=== PATIENT | male | born 1975 | race American Indian/Alaskan Native ===

== ENCOUNTER → 2020-11-15 12:29 | Outpatient (BNVA) | payer OTHER, SELFPAY | PROVIDERS: Visit Provider Physician Assistant ==

== ENCOUNTER → 2020-11-25 07:13 | Outpatient (BNVA) | payer OTHER, SELFPAY | PROVIDERS: Visit Provider Surgery ==

== ENCOUNTER → 2020-12-02 08:10 | Outpatient (BNVA) | payer OTHER, SELFPAY | PROVIDERS: Visit Provider Surgery ==

== ENCOUNTER → 2021-01-11 08:04 | Outpatient (BNVA) | payer OTHER, SELFPAY | PROVIDERS: PCP Internal Medicine; Visit Provider Surgery ==

== ENCOUNTER → 2021-01-18 08:19 | Outpatient (BNVA) | payer OTHER, SELFPAY | PROVIDERS: PCP Internal Medicine; Visit Provider Dietitian, Registered | DX: E66.01 Morbid (severe) obesity due to excess calories (principal) | CPT/HCPCS: 97802 ==

== ENCOUNTER 2021-01-26 08:28 | Outpatient (REF) | payer OTHER, SELFPAY ==
--- NOTE | ~2021-01-26 | FL_ITS ---
EXAMINATION: XR GI SERIES CLINICAL INFORMATION: Morbid obesity. COMPARISON: None TECHNIQUE: Air-contrast upper GI examination. FINDINGS: There is normal apposition of the vocal cords while saying E. There is normal elevation of the soft palate while saying candy. Patient drank thin and thick barium without difficulty. No nasopharyngeal reflux or tracheal aspiration. No Zenker's diverticulum identified. There is normal esophageal motility without evidence of persistent stricture or mucosal abnormality. No hiatal hernia was seen. No gastroesophageal reflux was elicited during the study. The stomach demonstrates normal distensibility without abnormal mass or ulceration. There was no delay in gastric emptying. The duodenal bulb and sweep appeared unremarkable. FLUOROSCOPY TIME: 2.0 minutes DOSE AREA PRODUCT: 18.525 Gy-cm2 (monroe-centimeter squared) FL/FL upper GI series IMPRESSION: Normal air-contrast upper GI examination.
--- NOTE | ~2021-01-26 | US_ITS ---
EXAMINATION: US COMPLETE ABDOMEN WITH LIVER ELASTOGRAPHY CLINICAL INFORMATION: Bariatric service evaluation; E66.01 COMPARISON: None. TECHNIQUE: Real-time imaging of the abdominal viscera. Noninvasive ultrasound liver fibrosis assessment is performed using [employer] Elast[employer] point quantification shear wave elastography (pSWE) with a C5-2 MHz transducer. Multiple elastography samples are obtained. Case discussed with director of scout work. FINDINGS: PANCREAS: Largely obscured by bowel gas and not imaged. ABDOMINAL AORTA: Upper abdominal aorta are obscured by bowel gas and not imaged. The mid and distal aorta appears normal in caliber. INFERIOR VENA CAVA: Visualized portions are normal. LIVER: The liver is normal in size and smooth in contour. There is increased hepatic parenchymal echogenicity consistent with hepatic steatosis. Small subcapsular cyst adjacent to gallbladder measures 1.3 x 0.9 cm. There is also some fatty sparing adjacent to the gallbladder fossa. No suspicious hepatic parenchymal lesion. The right lobe measures 14.8 cm in length. The left lobe measures 9.1 cm in length. Portal flow is towards the liver (hepatopetal). Shear wave liver elastography median stiffness is 2.24 m/s (reference: normal median stiffness is 1.3 m/s or less). IQR/median stiffness to assess sampling precision is 0.06 (reference: good quality data set is IQR/median stiffness of 0.15 or less). GALLBLADDER: The gallbladder is normal in size and shows no wall thickening or calculus or subserosal edema. There is negative sonographic Cates's sign. No pericholecystic fluid. Initial images show artifact from adjacent bowel overlying the lumen and mimicking gallbladder sludge. Additional attention to the gallbladder including decubitus imaging shows no sludge, stone, or polyp. COMMON BILE DUCT: Normal in caliber measuring 0.4 cm in diameter. RIGHT KIDNEY: Normal. No hydronephrosis. No renal calculi or focal parenchymal lesions. The kidney measures 11.3 cm in maximum dimension. LEFT KIDNEY: Normal. No hydronephrosis. No renal calculi or focal parenchymal lesions. The kidney measures 11.0 cm in maximum dimension. SPLEEN: Normal. The spleen measures 10.4 cm in maximum dimension. FREE FLUID: None. US/US abdomen comp w elastography IMPRESSION: 1. Hepatic steatosis. Elastography measurements are consistent with compensated advanced chronic liver disease. 2. Spleen normal in size. No ascites. Portal flow towards the liver. 3. No cholelithiasis or biliary ductal dilatation. 4. Bowel gas obscures pancreas and proximal abdominal aorta. REFERENCE: Society of Radiologists in Ultrasound Liver Stiffness Thresholds (2020): LIVER STIFFNESS THRESHOLDS: *Liver Stiffness equal or less than 1.3 m/s: High probability of being normal. *Liver Stiffness less than 1.7 m/s: In the absence of other known clinical signs, rules out compensated advanced chronic liver disease. *Liver Stiffness 1.7-2.1 m/s: Suggestive of compensated advanced chronic liver disease but need further test for confirmation. *Liver Stiffness over 2.1 m/s: Rules in compensated advanced chronic liver disease. *Liver Stiffness over 2.4 m/s: Suggestive of clinically significant portal hypertension. QUALITY OF DATA SET: *IQR/Median value equal or less than 0.15 implies a quality data set. *IQR/Median value over 0.15 implies a poor quality data set. SIGNIFICANT CHANGE FROM PRIOR EXAM: Significant change if liver stiffness measurement is 10% or greater from prior exam. OTHER CONSIDERATIONS: The stage of liver fibrosis may be overestimated in the setting of acute hepatitis, liver inflammation, elevated liver function tests, hepatic vascular congestion, obstructive cholestasis, non-fasting state, and infiltrative diseases such as amyloidosis and lymphoma. In some patients with NAFLD, the liver stiffness thresholds for compensated advanced chronic liver disease may be lower. In causes other than viral hepatitis and NAFLD, liver stiffness thresholds are not well established.
--- NOTE | ~2021-01-26 | XR_ITS ---
EXAMINATION: XR CHEST CLINICAL INFORMATION: Obesity COMPARISON: None TECHNIQUE: 2 views of the chest were obtained. FINDINGS: No significant abnormality is noted involving the heart, lungs, mediastinum, bony thorax or soft tissues. XR/XR chest 2V IMPRESSION: Unremarkable examination.
[2021-01-26 10:01] LABS: MANUAL DIFF FLAG NO
--- NOTE | 2021-01-26 10:02 | ECG_ITS ---
Test Reason : morbid obesity Blood Pressure : / mmHG Vent. Rate : 053 BPM Atrial Rate : 053 BPM P-R Int : 136 ms QRS Dur : 068 ms QT Int : 446 ms P-R-T Axes : 033 020 036 degrees QTc Int : 418 ms Sinus bradycardia Otherwise normal ECG No previous ECGs available Referred By: Ortiz Lopez Electronically Signed By:CHA CAMACHO MD
[2021-01-26 10:24] LABS: Basophils Percent Auto 0.5 % (0-2); Eosinophils Absolute Auto 0.2 X10*3/uL (0.0-0.4); Eosinophils Percent Auto 2.3 % (0-4); Hematocrit 44.7 % (42.0-52.0); Hemoglobin 15.1 g/dl (14.0-18.0); Imm Gran Abs Auto 0.01 X10*3/uL (0.00-0.03); Imm Gran Pct Auto 0.2 % (0.0-0.4); Lymphocytes Absolute Auto 1.7 X10*3/uL (1.2-4.9); Mean Corpuscular HGB Conc 33.8 g/dl (31.0-36.0); Mean Corpuscular Hemoglobin 28.8 pg (27.0-33.0); Mean Corpuscular Volume 85.3 fL (80.0-98.0); Mean Platelet Volume 9.9 fL (9.4-12.4); Monocytes Absolute Auto 0.6 X10*3/uL (0.1-1.2); Monocytes Percent Auto 8.6 % (2-11); Neutrophils Absolute Auto 4.2 x10*3/uL (2.0-8.3); Neutrophils Percent Auto 63.4 % (45-73); Platelet Count 284 X10*3/uL (160-400); Red Blood Count 5.24 X10*6/uL (4.60-5.80); White Blood Count 6.6 X10*3/uL (4.8-10.8)
[2021-01-26 10:50] LABS: Alanine Aminotransferase 58 U/L (0-40); Albumin Level 4.4 g/dL (3.5-5.0); Alkaline Phosphatase 75 U/L (39-117); Anion Gap 12 (12-20); Aspartate Amino Transferase 44 U/L (5-37); Bilirubin Total 0.8 mg/dL (0.0-1.0); Blood Urea Nitrogen 14 mg/dL (9-16); C Reactive Protein 0.62 mg/dL (< or = 0.50); Calcium 9.4 mg/dL (8.4-10.2); Carbon Dioxide 29 mmol/L (22-29); Chloride 102 mmol/L (96-108); Cholesterol 167 mg/dL; Estimated Glomerular Filt Rate > 60; Glucose Random 93 mg/dL (60-115); HDL Cholesterol 37 mg/dL; Iron 105 mcg/dL (45-160); LDL Cholesterol Calculated 112 mg/dl; Percent Iron Saturation 32 % (15-50); Potassium 4.4 mmol/L (3.3-5.1); Sodium 139 mmol/L (135-145); Total Iron Binding Capacity 332 mcg/dL (228-428); Total Protein 7.7 g/dL (6.5-8.0); Triglycerides 93 mg/dL; Unsaturated Iron Binding 227 ug/dL
[2021-01-26 10:59] LABS: Estimated Average Glucose 105 mg/dL; Hemoglobin A1c % 5.3 %
[2021-01-26 11:13] LABS: Ferritin 366 ng/mL (20-250); Insulin 26 uU/mL (2-29); TSH reflex Free T4 4.02 uIU/mL (0.32-4.0); Vitamin D 25-OH Total 9.3 ng/mL (>30)
[2021-01-26 12:17] LABS: Folate 12.4 ng/mL (> or = 4.0); Vitamin B12 635 pg/mL (200-900)
[2021-01-27 12:15] LABS: H Pylori Breath Test Negative (Negative)
[2021-01-28 03:46] LABS: Calcium (PTHI) 9.4 mg/dL (8.6-10.3); PTHI 102 pg/mL (14-64)
[2021-01-30 12:56] LABS: Zinc 65 mcg/dL (60-130)
[2021-01-31 11:37] LABS: Vitamin B1 9 nmol/L (8-30)
[2021-01-31 14:17] LABS: Vitamin A 33 mcg/dL (38-98)
== END 2021-01-26 08:29 | disposition home or self-care (01) ==
LOC: HO.US 08:28
PROVIDERS: PCP Internal Medicine; Visit Provider Surgery
DX: Z01.818 Encounter for other preprocedural examination (principal); E66.01 Morbid (severe) obesity due to excess calories; K21.9 Gastro-esophageal reflux disease without esophagitis
CPT/HCPCS: 36415; 71046; 74240; 76705; 76981; 80053; 80061; 82306; 82607; 82728; 82746; 83013; 83036; 83525; 83540; 83970; 84425; 84439; 84443; 84590; 84630; 85025; 86140; 93005

== ENCOUNTER → 2021-02-06 08:16 | Outpatient (BNVA) | payer OTHER, SELFPAY | PROVIDERS: PCP Internal Medicine; Visit Provider Surgery ==

== ENCOUNTER → 2021-02-20 15:58 | Outpatient (BNVA) | payer OTHER, SELFPAY | PROVIDERS: PCP Internal Medicine; Referring Provider Internal Medicine; Visit Provider Physician Assistant ==

== ENCOUNTER → 2021-02-24 13:10 | Outpatient (BNVA) | payer OTHER, SELFPAY | PROVIDERS: PCP Internal Medicine; Referring Provider Internal Medicine; Visit Provider Physician Assistant ==

== ENCOUNTER → 2021-03-03 08:00 | Outpatient (BNVA) | payer OTHER, SELFPAY | PROVIDERS: PCP Internal Medicine; Visit Provider Surgery ==

== ENCOUNTER 2021-03-09 13:17 | Outpatient (REF) | payer OTHER, SELFPAY ==
[2021-03-09 13:47] LABS: MANUAL DIFF FLAG NO
[2021-03-09 14:33] LABS: Basophils Percent Auto 0.4 % (0-2); Eosinophils Absolute Auto 0.1 X10*3/uL (0.0-0.4); Hemoglobin 14.4 g/dl (14.0-18.0); Imm Gran Abs Auto 0.02 X10*3/uL (0.00-0.03); Imm Gran Pct Auto 0.3 % (0.0-0.4); Lymphocytes Absolute Auto 2.2 X10*3/uL (1.2-4.9); Lymphocytes Percent Auto 31.3 % (20-40); Mean Corpuscular HGB Conc 33.5 g/dl (31.0-36.0); Mean Corpuscular Hemoglobin 28.7 pg (27.0-33.0); Mean Corpuscular Volume 85.7 fL (80.0-98.0); Mean Platelet Volume 9.9 fL (9.4-12.4); Monocytes Absolute Auto 0.6 X10*3/uL (0.1-1.2); Monocytes Percent Auto 9.1 % (2-11); Neutrophils Percent Auto 56.9 % (45-73); Platelet Count 304 X10*3/uL (160-400); Red Blood Count 5.02 X10*6/uL (4.60-5.80); Red Cell Distribution Width 13.1 % (11.0-16.0); White Blood Count 7.1 X10*3/uL (4.8-10.8)
[2021-03-09 14:40] LABS: INTERNATIONAL NORM RATIO 1.1 (0.9-1.1)
[2021-03-09 14:43] LABS: Partial Thromboplastin Time 37.8 SEC (24.1-38.0)
[2021-03-09 15:06] LABS: Estimated Average Glucose 108 mg/dL; Hemoglobin A1c % 5.4 %
== END 2021-03-09 13:18 | disposition home or self-care (01) ==
LOC: HO.LAB 13:17
PROVIDERS: PCP Internal Medicine; Visit Provider Surgery
DX: E03.9 Hypothyroidism, unspecified (principal); E66.01 Morbid (severe) obesity due to excess calories
CPT/HCPCS: 36415; 83036; 85025; 85610; 85730

== ENCOUNTER → 2021-03-16 05:58 | Day surgery (SDC) | payer OTHER, SELFPAY ==
--- NOTE | 2021-03-10 23:44 | MHC.SHP ---
Pre-Procedural Eval Section A Date of Service: 03/10/21 The patient is an INPATIENT: No The History & Physical has been completed within 30 days and I have reviewed it.: Yes Section B Chief Complaint: obesity Details of Present Illness: obesity Relevant Family History (Specify if Yes): No Relevant Social History: None Present Medications: None Medical History: No relevant PMH History of Previous Operations: No relevant previous surgery Allergies: Allergies Allergy/AdvReac Type Severity Reaction Status Date / Time No Known Allergies Allergy Verified 03/03/21 09:13 Review of Systems Sugical H&P ROS: Negative: Constitution, Cardiovascular, Respiratory, Neurological, Psychiatric, Hem-Onc, Allergic/Immunologic, Gastrointestinal, Genitourinary, Musculoskeletal, Integumentary, Endocrine and Eyes/Ears/Nose/Throat Exam Surgical H&P Exam: Normal: HEENT, Normal: Heart, Normal: Lungs, Normal: Extremities, Normal: Abdomen, Normal: Skin and Normal: Neurological Plan Diagnosis/Plan: Unchanged I have reviewed the history and physical and performed a pertinent physical examination on my patient. No changes have occurred unless specified.
[2021-03-13 09:12] VITALS: BMI 41.3
--- NOTE | 2021-03-15 10:40 | HO.ANESPROP2 ---
HPI - Anesthesia Eval Consult details Narrative: 45yo M for Gastrectomy Sleeve,EGD,possible diaphragmatic hernia,possible ventral hernia,possible open PMFSH Active Problems Active Problems: All Active Problems (Updated 03/13/21 @ 09:14 by Lorena Escobedo RN) MATY (generalized anxiety disorder) (Acute) Vitamin A deficiency (Acute) Vitamin D deficiency (Acute) Hypothyroidism (Acute) Knee pain (Acute) Anxiety (Acute) Morbid obesity (Acute) Past Medical History Medical History (Updated 03/13/21 @ 09:14 by Lorena Escobedo RN) Anxiety COVID-19 vaccine series completed Hypothyroid Knee pain Morbid obesity Family History Family History (Updated 12/02/20 @ 09:13 by Tamera Salinas) Mother Diabetes Breast cancer History of hip replacement History of knee replacement Uterus cancer Father Heart attack Hypertension Brother No problems noted. Surgical History Surgical History (Updated 12/02/20 @ 09:09 by Tamera Salinas) No history of previous surgery Social History Social History (Updated 12/02/20 @ 09:13 by Tamera Sailnas) Are you a primary day care home mother to a significant other at home: No Do you presently have visiting nurse or other home services: No Alcohol intake: never Patient Tobacco Use Status: Former Tobacco user Quit Date: 1992 Tobacco use type: Cigarette and Smokeless Tobacco Meds Allergies Allergy/AdvReac Type Severity Reaction Status Date / Time No Known Allergies Allergy Verified 03/03/21 09:13 Home Medications Medication Instructions Recorded Confirmed Last Taken Type alprazolam 0.5 mg tablet (Xanax) 0.5 mg PO BEDTIME PRN 12/02/20 03/13/21 Unknown History paroxetine HCl 40 mg tablet 40 mg PO DAILY 12/02/20 03/13/21 Unknown History Exam Exam Date and Time: March 15, 2021 1040 Height,Weight and Vital Signs: Height 5 ft 9 in Weight 127.006 kg Pertinent Lab Results Pertinent Lab Results: Laboratory Tests 03/09/21 13:40 Blood Type O Positive Antibody Screen NEGATIVE Laboratory Tests 01/26/21 03/09/21 09:55 13:46 WBC 7.1 Hgb 14.4 Hct 43.0 Plt Count 304 Sodium 139 Potassium 4.4 Chloride 102 Carbon Dioxide 29 BUN 14 Creatinine 0.82 Narrative Narrative: EKG 01/2021 Vent. Rate : 053 BPM ? ? Atrial Rate : 053 BPM ?? P-R Int : 136 ms? QRS Dur : 068 ms ? ? QT Int : 446 ms ? ? ? P-R-T Axes : 033 020 036 degrees ?? QTc Int : 418 ms ? Sinus bradycardia Otherwise normal ECG No previous ECGs available Assessment and Plan Assessment Anesthesia Assessment: Chart Reviewed
[2021-03-16 06:44] VITALS: BP 106/70; PULSE 58; RESP 16; TEMP 36.2; O2SAT 98
[2021-03-16] MEDS: Lactated Ringers 1,000 ML 999 ML IV (06:46)
[2021-03-16] MEDS: Lactated Ringers 1,000 ML 100 ML IVCONT (06:47)
[2021-03-16 06:50] LABS: COVID-19 Test Positive (Negative)
--- NOTE | 2021-03-16 07:40 | PC.NURSE ---
received call from chemistry. pt result covid positive. Dr. Duran, Dr. Mayfield, Dr. Lopez, and AICHA Grigsby all notified via [email or web address]. Dr. Duran at bedside to evaluate pt. per pt no known exposure and denies symptoms at this time. Dr. Cruz at bedside. per Dr. Mayfield and Dr. Cruz case to be rescheduled.
== END ==
PROVIDERS: PCP Internal Medicine; Visit Provider Surgery
DX: E66.01 Morbid (severe) obesity due to excess calories (principal); Z68.41 Body mass index [BMI] 40.0-44.9, adult; Z53.09 Procedure and treatment not carried out because of other contraindication; Z20.822 Contact with and (suspected) exposure to COVID-19; E03.9 Hypothyroidism, unspecified; Z87.891 Personal history of nicotine dependence
CPT/HCPCS: 36415; 86850; 86900; 86901; 87635; J0131; J0690

== ENCOUNTER 2021-03-22 08:45 | Outpatient (REF) | payer OTHER, SELFPAY ==
[2021-03-22 10:04] LABS: COVID-19 Test Positive (Negative)
== END 2021-03-22 08:46 | disposition home or self-care (01) ==
LOC: HO.LAB 08:45
PROVIDERS: Visit Provider Internal Medicine
DX: Z20.822 Contact with and (suspected) exposure to COVID-19 (principal)
CPT/HCPCS: 87635; C9803

== ENCOUNTER 2021-03-27 08:56 | Outpatient (REF) | payer OTHER, SELFPAY ==
[2021-03-27 11:53] LABS: Binax Now Covid-19 Ag Negative (Negative)
[2021-03-27 11:54] LABS: Binax Internal Control QC Valid
== END 2021-03-27 08:57 | disposition home or self-care (01) ==
LOC: HO.LAB 08:56
PROVIDERS: Visit Provider Internal Medicine
DX: Z20.822 Contact with and (suspected) exposure to COVID-19 (principal)
CPT/HCPCS: 36415; C9803